=== PATIENT | female | born 1995 | race Two or more races ===

== ENCOUNTER → 2020-03-11 | Outpatient (CLI) | payer OTHER ==
--- NOTE | 2020-03-11 15:14 | RADIOLOGY REPORT (SQ) ---
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 RADIONUCLIDE AND DOSE: 21.3 millicuries Tc99m MDP. The route of agent administration: Intravenous. ADDITIONAL DRUGS AND DOSES: None. TECHNIQUE: Routine delayed images at 3 hour post radionuclide injection acquired of the bony skeleto n including anterior and posterior whole-body projections and additional focused images as needed. LIMITATIONS: None. FINDINGS: BONES: No significant increased uptake. Degenerative change in the knees and shoulders an d right forefoot. KIDNEYS: Symmetric excretion without obstruction. OTHER: No other significant finding. IMPRESSION: No evidence of metastatic disease. COMMENT: Quality measure 147: No available prior imaging studies for comparison TECHNICAL DOCUMENTATION: JOB ID: [id number] 2010 [employer]- All Rights Reserved Reading location - IP/workstation name: [email or web address]
== END ==
LOC: RAD 10:20
PROVIDERS: ATTEND Internal Medicine Hematology & Oncology
DX: C50.411 Malignant neoplasm of upper-outer quadrant of right female breast (principal)
CPT/HCPCS: 78306; A9503; Q9969

== ENCOUNTER → 2020-03-13 | Outpatient (CLI) | payer OTHER ==
--- NOTE | 2020-03-13 10:10 | RADIOLOGY REPORT (SQ) ---
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 TECHNIQUE: CT scan of the chest performed using helical scanning technique with dynamic intravenous contrast injection. Images reviewed with lung, soft tissue and bone windows. Reconstructed coronal and sagittal MPR and MIP images reviewed. All images stored on PACS. All CT scanners at this facility use dose modulation, iterative reconstruction, and/or weight based d osing when appropriate to reduce radiation dose to as low as reasonably achievable (ALARA). [facility]: Dose Right [facility]: CareDose [facility]: Dose Right [facility]: Teradose 4D [facility]: [employer] RENAL FUNCTION: None required. The patient is less than 50 years old. RADIATION DOSE: . LIMITATIONS: None. FINDINGS: LUNGS AND PLEURA: No opacities, nodules, masses. No pneumothorax. No effusions. HILAR AND MEDIASTINAL STRUCTURES: No identified masses or abnormal nodes. HEART AND VASCULAR STRUCTURES: No aneurysm or dissection. No central pulmonary emboli. No pericardi al effusion. HARDWARE: None in the chest. UPPER ABDOMEN: See separate report of the CT of the abdomen. THYROID AND OTHER SOFT TISSUES: No masses. No adenopathy. BONES: No significant finding. OTHER: No other significant finding. IMPRESSION: No evidence of metastatic disease. TECHNICAL DOCUMENTATION: JOB ID: [id number] Quality ID # 436: Final reports with documentation of one or more dose reduction techniques (e.g., Au tomated exposure control, adjustment of the mA and/or kV according to patient size, use of iterative reconstruction technique) 2010 [employer]- All Rights Reserved Reading location - IP/workstation name: [email or web address]
--- NOTE | 2020-03-13 10:13 | RADIOLOGY REPORT (SQ) ---
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 TECHNIQUE: CT scan of the abdomen and pelvis performed using helical scanning technique with dynamic intravenous contrast injection. No oral contrast. Images reviewed with lung, soft tissue, and bone windows. Reconstructed coronal and sagittal MPR images reviewed. Delayed images for evaluation of the urinary system also acquired. All images stored on PACS. All CT scanners at this facility use dose modulation, iterative reconstruction, and/or weight based d osing when appropriate to reduce radiation dose to as low as reasonably achievable (ALARA). [facility]: Dose Right [facility]: CareDose [facility]: Dose Right [facility]: Teradose 4D [facility]: [employer] RENAL FUNCTION: None required. The patient is less than 50 years old. RADIATION DOSE: CT Rad equipment meets quality standard of care and radiation dose reduction techniq ues were employed. CTDIvol: 5.0 - 5.7 mGy. DLP: 761 mGy-cm.. LIMITATIONS: None. FINDINGS: LOWER CHEST: See separate report of the CT of the chest. LIVER: Normal size. No masses. No dilated ducts. SPLEEN: Normal size. No focal lesions. PANCREAS: No masses. No significant calcifications. No adjacent inflammation or peripancreatic fluid collections. Pancreatic duct not dilated. GALLBLADDER: No identified stones by CT criteria. No inflammatory changes to suggest cholecystitis. ADRENAL GLANDS: No significant masses or asymmetry. RIGHT KIDNEY AND URETER: No solid masses. No significant calcifications. No hydronephrosis or hyd roureter. LEFT KIDNEY AND URETER: No solid masses. No significant calcifications. No hydronephrosis or hydr oureter. AORTA AND VESSELS: No aneurysm. No dissection. Renal arteries, SMA, celiac without stenosis. RETROPERITONEUM: No retroperitoneal adenopathy, hemorrhage or masses. BOWEL AND PERITONEAL CAVITY: No masses or inflammatory changes. No free fluid or peritoneal masses. APPENDIX: Normal. PELVIS: No mass. No free fluid. Normal bladder. ABDOMINAL WALL: No masses. No hernias. BONES: No significant or acute findings. OTHER: No other significant finding. IMPRESSION: No evidence of metastatic disease. TECHNICAL DOCUMENTATION: JOB ID: [id number] Quality ID # [id number]: Final reports with documentation of one or more dose reduction techniques (e.g., Au tomated exposure control, adjustment of the mA and/or kV according to patient size, use of iterative reconstruction technique) 2010 [employer]- All Rights Reserved Reading location - IP/workstation name: [email or web address]
== END ==
LOC: RAD 09:21
PROVIDERS: ATTEND Internal Medicine Hematology & Oncology
DX: C50.411 Malignant neoplasm of upper-outer quadrant of right female breast (principal)
CPT/HCPCS: 71260; 74177

== ENCOUNTER 2020-04-30 08:02 | Day surgery (SDC) | payer OTHER ==
[2020-04-25 12:01] LABS: HEMATOCRIT 42.4 % (36.0-47.0); HEMOGLOBIN 14.1 g/dL (12.0-15.5); MEAN CORPUSCULAR HEMOGLOBIN 27.9 pg (27.0-33.4); MEAN CORPUSCULAR HGB CONC 33.1 g/dL (32.0-36.0); MEAN CORPUSCULAR VOLUME 84 fl (80-97); PLATELET COUNT 365 10^3/uL (150-450); RED BLOOD COUNT 5.04 10^6/uL (3.72-5.28); RED CELL DISTRIBUTION WIDTH 15.5 % (11.5-14.0)
[2020-04-25 12:10] LABS: PROTHROMBIN TIME 13.2 SEC (11.4-15.4)
[2020-04-25 12:11] LABS: PARTIAL THROMBOPLASTIN TIME 28.8 SEC (23.5-35.8)
[2020-04-25 12:27] LABS: PFA ADP 110 (56-106); PFA EPI 126 (55-179)
[~2020-04-30 08:02] MED LIST: CEFAZOLIN 1 GM/D5W RTU 1 GM/50 ML RTUPB IV PRN; LACTATED RINGERS 1000 ML IV PRN; LIDOCAINE 0.5% INJ-PF (5 MG/ML) 50 ML SDV SUBCUT PRN; LIDOCAINE 4% CREAM 5 GM TUBE TP PRN
[2020-04-30] MEDS ORDERED: LIDOCAINE 4% CREAM 5 GM TUBE ONE (08:13)
[2020-04-30] MEDS ORDERED: CEFAZOLIN 1 GM/D5W RTU 1 GM/50 ML RTUPB IV ONE (08:15)
[2020-04-30] MEDS ORDERED: FENTANYL CITRATE INJ/PF 100 MCG/2 ML AMPUL ONE ×2 (09:39→13:14)
[2020-04-30] MEDS ORDERED: PROPOFOL INJ 200 MG/20 ML VIAL IV ONE (09:40)
[2020-04-30] MEDS ORDERED: MIDAZOLAM 2 MG/2 ML INJ ONE (09:40)
[2020-04-30] MEDS ORDERED: HYDROMORPHONE HCL INJ/PF 2 MG/ML AMPULE ONE (09:40)
[2020-04-30] MEDS ORDERED: METHYLENE BLUE 50 MG/10 ML AMPULE ONE (10:21)
[2020-04-30] MEDS ORDERED: LIDOCAINE 1%/EPINEPHRINE INJ 20 ML VIAL ONE (10:21)
[2020-04-30] MEDS ORDERED: MICROFIBRILLAR COLLAGEN 1 GM PACK ONE (10:21)
[2020-04-30] MEDS ORDERED: FENTANYL CITRATE INJ/PF 100 MCG/2 ML AMPUL IV PRN ×3 (11:51)
[2020-04-30] MEDS ORDERED: DIPHENHYDRAMINE HCL 50 MG/ML VIAL IV PRN (11:51)
[2020-04-30] MEDS ORDERED: MORPHINE SULFATE 10 MG/ML INJ IV PRN (11:51)
[2020-04-30] MEDS ORDERED: MEPERIDINE HCL/PF INJ 25 MG/1 ML DISP.SYRIN IV PRN (11:51)
[2020-04-30] MEDS ORDERED: PROMETHAZINE HCL INJ 25 MG/1 ML VIAL IV PRN (11:51)
[2020-04-30] MEDS ORDERED: ONDANSETRON HCL INJ/PF 4 MG/2 ML SDV IV PRN (11:51)
[2020-04-30] MEDS ORDERED: OXYCODONE-ACETAMINOPHEN 5-325 MG TABLET PO PRN ×2 (11:51)
--- NOTE | 2020-04-30 13:06 | Discharge Summary ---
Discharge Summary (SDC) - Discharge Final Diagnosis: Infiltrating ductal carcinoma, right breast Date of Surgery: 04/30/20 Discharge Date: 04/30/20 Condition: Good Treatment or Instructions: Instruct patient on drain care; follow-up with [facility] in 1 week; patient may shower. Prescription sent electronically to pharmacy Prescriptions: Ketorolac Tromethamine [Toradol 10 mg Tablet] 10 mg PO Q6HP PRN #20 tablet PRN Reason: Discharge Diet: Regular Discharge Activity: Activity As Tolerated Home Care Assistance: None Needed Report the Following to Your Physician Immediately: Shortness of Breath, Increase in Pain, Fever over 101 Degrees
--- NOTE | 2020-04-30 13:13 | Operative Report ---
Operative Report DATE OF SURGERY: 04/30/20 PREOPERATIVE DIAGNOSIS: Infiltrating ductal carcinoma right breast POSTOPERATIVE DIAGNOSIS: Same OPERATION: 1. Right mastectomy with drainage of chest wall. 2. Luck lymph node biopsy right axilla SURGEON: VINICIO BUTLER ANESTHESIA: GA TISSUE REMOVED OR ALTERED: Right breast; Luck lymph nodes right axilla COMPLICATIONS: None ESTIMATED BLOOD LOSS: 20 cc INTRAOPERATIVE FINDINGS: See below PROCEDURE: The patient was seen in the preop holding area, right breast marked, and neoprobe bedside assessment demonstrated increased activity of Lymphoseek in the right axilla consistent with successful sentinel lymph node mapping. The patient was taken to the operating room where general anesthesia was induced. Right arm was abducted, right breast exposed, and 2 cc of diluted methylene blue was injected into the right breast, areolear border, intradermally at the 2 o'clock position. The right breast was massaged, then the right breast chest wall and axilla all prepped and draped sterile fashion Surgical plan surgical timeout were conducted. Markings were made on the skin for standard right mastectomy. The skin was incised with a #10 blade, and appropriate thickness superior and inferior skin flaps were elevated. The dissection was taken to the infraclavicular area superiorly, the para sternal tissue medially, the confluence of the pectoralis major muscle and the serratus muscle inferiorly and laterally. The breast was taken off of the chest wall including the pectoralis fascia. The lateral aspect of the breast was elevated off of the lateral chest wall and tail of Underwood mobilized. The breast was completely taken off of the chest wall, marked with a short suture the superior position, long suture in the lateral position. The tumor was readily palpable the 10 o'clock position of the right breast, did not involve the margins grossly. Specimen was sent to Dr. boyd, pathologist, who called us back after reviewing the specimen and determined grossly that the surgical margins were free of tumor. We now conducted the sentinel lymph node biopsy. Using the neoprobe as a guide and blue dye, the single dominant sentinel lymph node was blue and hot level 1 with an in vivo count of 6600 and an ex vivo count of 20,960. Specimen consisted of more than 1 lymph node and was sent for permanent analysis. Background counts were negligible. There was no other new activity in the chest wall. We felt the sentinel node biopsy portion of the operation was complete. A large Ronnell drain was placed through the inferolateral skin flap secured to the skin with 2-0 Prolene suture and trimmed to appropriate length and left into position. Sponge and needle counts are correct. We felt the operation was complete. Mastectomy closure was completed with multiple running 2-0 chromic sutures, and skin glue. Patient tolerated procedure well. She had 20 cc of quarter percent Marcaine injected in the subcutaneous tissues. Patient was extubated, taken to the recovery room in stable condition.
[2020-04-30] MEDS ORDERED: ONDANSETRON HCL INJ/PF 4 MG/2 ML SDV ONE ×2 (13:26→15:24)
[2020-04-30 15:09] VITALS: BP 123/81
[2020-04-30] MEDS ORDERED: DEXAMETHASONE SOD PHOSPHATE INJ 4 MG/1 ML VIAL ONE (15:24)
[2020-04-30] MEDS ORDERED: SUCCINYLCHOLINE CHLORIDE INJ 200 MG/10 ML VIAL ONE (15:24)
[2020-04-30] MEDS ORDERED: KETOROLAC TROMETHAMINE 60 MG/2 ML SDV ONE (15:24)
--- NOTE | 2020-05-01 14:17 | RADIOLOGY REPORT (SQ) ---
EXAM DESCRIPTION: NM LYMPHATICS/LYMPH GLANDS IMAGES COMPLETED DATE/TIME: 04/30/2020 10:52 am REASON FOR STUDY: MALIGNANT NEOPLASM OF RT FEMALE BREAST C50.911 MALIGNANT NEOPLASM OF UNSP SITE OF RIGHT FEMALE COLE COMPARISON: 03/13/2020 RADIONUCLIDE AND DOSE: 568 micro[employer] TC-99m tilmanocept - Lymphoseek. The route of agent administration: Subcutaneous in the skin. TECHNIQUE: The skin of the right breast was prepped in sterile fashion. The radiopharmaceutical was administered in equally divided doses in the periareolar breast. LIMITATIONS: None. FINDINGS: Images demonstrate activity at the injection site and a right axillary node. IMPRESSION: ADMINISTRATION OF RADIOPHARMACEUTICAL FOR SENTINEL LYMPH NODE EVALUATION. TECHNICAL DOCUMENTATION: JOB ID: [id number] 2010 [email or web address]- All Rights Reserved Reading location - IP/workstation name: [email or web address]
== END 2020-04-30 15:20 | disposition home or self-care (01) ==
LOC: OROUT 08:02
PROVIDERS: ATTEND Surgery
DX: C50.911 Malignant neoplasm of unspecified site of right female breast (principal); Z03.818 Encounter for observation for suspected exposure to other biological agents ruled out; C50.811 Malignant neoplasm of overlapping sites of right female breast; C77.3 Secondary and unspecified malignant neoplasm of axilla and upper limb lymph nodes; Z17.0 Estrogen receptor positive status [ER+]; Z86.73 Personal history of transient ischemic attack (TIA), and cerebral infarction without residual deficits; Z88.2 Allergy status to sulfonamides; G80.9 Cerebral palsy, unspecified
CPT/HCPCS: 36415; 85027; 85610; 85730; 87635; 81025; 85576; 88342 ×2; 88307 ×2; 78195; 01610; 19307; A9520; J2250; J0690; J1100; J1885; J3010; J3490 ×2; J1170; J0330; J2405; J2704; Q9968; C9803; 1610

== ENCOUNTER 2020-06-12 08:14 | Outpatient (CLI) | payer OTHER ==
[2020-06-12] MEDS ORDERED: PALONOSETRON 0.25 MG/5 ML VIAL IV PRN (08:31)
[2020-06-12] MEDS ORDERED: DEXAMETHASONE 10 MG in NS 50 ML IV PRN (08:33)
[2020-06-12] MEDS ORDERED: FOSAPREPITANT 150 MG in NS 150 ML IV PRN (08:33)
[2020-06-12] MEDS ORDERED: FAMOTIDINE 20 MG in NS 50 ML IV PRN ×2 (08:34→08:59)
[2020-06-12] MEDS ORDERED: DIPHENHYDRAMINE 50 MG/ML VIAL IV PRN (08:35)
[2020-06-12] MEDS ORDERED: DOCETAXEL IV PRN (08:39)
[2020-06-12] MEDS ORDERED: NORMAL SALINE IV PRN ×2 (08:39→08:45)
[2020-06-12] MEDS ORDERED: DIPHENHYDRAMINE 50 MG in NS 50 ML IV PRN (08:40)
[2020-06-12] MEDS ORDERED: CYCLOPHOSPHAMIDE IV PRN (08:45)
[2020-06-12 09:37] VITALS: BP 126/72
[2020-06-13] MEDS ORDERED: NORMAL SALINE 500 ML @ KVO IV PRN (05:00)
== END 2020-06-12 13:30 | disposition home or self-care (01) ==
LOC: II 08:14 → 5TH 08:17 → II 13:30
PROVIDERS: ATTEND Nurse Practitioner Family
DX: Z51.11 Encounter for antineoplastic chemotherapy (principal); C50.411 Malignant neoplasm of upper-outer quadrant of right female breast
CPT/HCPCS: 96413; 96367; 96375; 96417; J9070; J1200; J7050 ×2; S0028; J1100; J1453; J2469; J9171

== ENCOUNTER 2020-06-13 12:47 | Outpatient (CLI) | payer OTHER ==
[~2020-06-13 12:47] MED LIST changes: -CEFAZOLIN 1 GM/D5W RTU 1 GM/50 ML RTUPB IV PRN; -LACTATED RINGERS 1000 ML IV PRN; -LIDOCAINE 0.5% INJ-PF (5 MG/ML) 50 ML SDV SUBCUT PRN; -LIDOCAINE 4% CREAM 5 GM TUBE TP PRN; +PEGFILGRASTIM-CBQV 6 MG/0.6 ML SYRINGE SUBCUT PRN
[2020-06-13 13:15] VITALS: BP 107/79
== END 2020-06-13 13:47 | disposition home or self-care (01) ==
LOC: II 12:47 → 5TH 12:49 → II 13:47
PROVIDERS: ATTEND Nurse Practitioner Family
DX: Z76.89 Persons encountering health services in other specified circumstances (principal); C50.411 Malignant neoplasm of upper-outer quadrant of right female breast
CPT/HCPCS: 96372; Q5111

== ENCOUNTER 2020-07-03 08:00 | Outpatient (CLI) | payer OTHER ==
[~2020-07-03 08:00] MED LIST changes: +CYCLOPHOSPHAMIDE IV PRN; +DEXAMETHASONE 10 MG in NS 50 ML IV PRN; +DIPHENHYDRAMINE 50 MG in NS 50 ML IV PRN; +DOCETAXEL IV PRN; +FAMOTIDINE 20 MG in NS 50 ML IV PRN; +FOSAPREPITANT 150 MG in NS 150 ML IV PRN; +NORMAL SALINE 500 ML @ KVO IV PRN; +NORMAL SALINE IV PRN; +PALONOSETRON 0.25 MG/5 ML VIAL IV PRN; -PEGFILGRASTIM-CBQV 6 MG/0.6 ML SYRINGE SUBCUT PRN
[2020-07-03 08:45] VITALS: BP 125/78
== END 2020-07-03 12:15 | disposition home or self-care (01) ==
LOC: II 08:00 → 5TH 08:03 → II 12:15
PROVIDERS: ATTEND Internal Medicine Hematology & Oncology
DX: Z51.11 Encounter for antineoplastic chemotherapy (principal); C50.411 Malignant neoplasm of upper-outer quadrant of right female breast
CPT/HCPCS: 96411; 96413; 96367; 96375; J9070; J1200; J7050 ×2; S0028; J1100; J1453; J2469; J9171

== ENCOUNTER 2020-07-04 11:38 | Outpatient (CLI) | payer OTHER ==
[~2020-07-04 11:38] MED LIST changes: -CYCLOPHOSPHAMIDE IV PRN; -DEXAMETHASONE 10 MG in NS 50 ML IV PRN; -DIPHENHYDRAMINE 50 MG in NS 50 ML IV PRN; -DOCETAXEL IV PRN; -FAMOTIDINE 20 MG in NS 50 ML IV PRN; -FOSAPREPITANT 150 MG in NS 150 ML IV PRN; -NORMAL SALINE 500 ML @ KVO IV PRN; -NORMAL SALINE IV PRN; -PALONOSETRON 0.25 MG/5 ML VIAL IV PRN; +PEGFILGRASTIM-CBQV 6 MG/0.6 ML SYRINGE SUBCUT PRN
[2020-07-04 11:55] VITALS: BP 106/81
== END 2020-07-04 12:00 | disposition home or self-care (01) ==
LOC: II 11:38 → 5TH 11:43 → II 12:00
PROVIDERS: ATTEND Internal Medicine Hematology & Oncology
DX: Z76.89 Persons encountering health services in other specified circumstances (principal); C50.411 Malignant neoplasm of upper-outer quadrant of right female breast
CPT/HCPCS: 96372; Q5111

== ENCOUNTER 2020-07-24 07:54 | Outpatient (CLI) | payer OTHER ==
[~2020-07-24 07:54] MED LIST changes: +CYCLOPHOSPHAMIDE IV PRN; +DEXAMETHASONE 10 MG in NS 50 ML IV PRN; +DIPHENHYDRAMINE 50 MG in NS 50 ML IV PRN; +DOCETAXEL IV PRN; +FAMOTIDINE 20 MG in NS 50 ML IV PRN; +FOSAPREPITANT 150 MG in NS 150 ML IV PRN; +NORMAL SALINE 500 ML @ KVO IV PRN; +NORMAL SALINE IV PRN; +PALONOSETRON 0.25 MG/5 ML SDV IV PRN; -PEGFILGRASTIM-CBQV 6 MG/0.6 ML SYRINGE SUBCUT PRN
[2020-07-24 08:38] VITALS: BP 118/74
[2020-07-24] MEDS ORDERED: LORAZEPAM INJ 2 MG/1 ML VIAL IV ONE (13:00)
[2020-07-24] MEDS ORDERED: LORAZEPAM 0.5 MG TABLET PO ONE (13:00)
== END 2020-07-24 15:00 | disposition home or self-care (01) ==
LOC: II 07:54 → 5TH 07:57 → II 15:00
PROVIDERS: ATTEND Internal Medicine Hematology & Oncology
DX: Z51.11 Encounter for antineoplastic chemotherapy (principal); C50.411 Malignant neoplasm of upper-outer quadrant of right female breast
CPT/HCPCS: 96411; 96413; 96367; 96375; J9070; J1200; J7050 ×2; S0028; J1100; J1453; J2469; J9171

== ENCOUNTER 2020-07-25 14:02 | Outpatient (CLI) | payer OTHER ==
[~2020-07-25 14:02] MED LIST changes: -CYCLOPHOSPHAMIDE IV PRN; -DEXAMETHASONE 10 MG in NS 50 ML IV PRN; -DIPHENHYDRAMINE 50 MG in NS 50 ML IV PRN; -DOCETAXEL IV PRN; -FAMOTIDINE 20 MG in NS 50 ML IV PRN; -FOSAPREPITANT 150 MG in NS 150 ML IV PRN; -NORMAL SALINE 500 ML @ KVO IV PRN; -NORMAL SALINE IV PRN; -PALONOSETRON 0.25 MG/5 ML SDV IV PRN; +PEGFILGRASTIM-CBQV 6 MG/0.6 ML SYRINGE SUBCUT PRN
[2020-07-25 14:30] VITALS: BP 107/60
== END 2020-07-25 14:32 | disposition home or self-care (01) ==
LOC: II 14:02 → 5TH 14:04 → II 14:32
PROVIDERS: ATTEND Internal Medicine Hematology & Oncology
DX: Z76.89 Persons encountering health services in other specified circumstances (principal); C50.411 Malignant neoplasm of upper-outer quadrant of right female breast
CPT/HCPCS: 96372; Q5111

== ENCOUNTER 2020-08-14 07:58 | Outpatient (CLI) | payer OTHER ==
[~2020-08-14 07:58] MED LIST changes: +CYCLOPHOSPHAMIDE IV PRN; +DEXAMETHASONE 10 MG in NS 50 ML IV PRN; +DOCETAXEL IV PRN; +FAMOTIDINE 20 MG in NS 50 ML IV PRN; +FOSAPREPITANT 150 MG in NS 150 ML IV PRN; +NORMAL SALINE 500 ML @ KVO IV PRN; +NORMAL SALINE IV PRN; +PALONOSETRON 0.25 MG/5 ML VIAL IV PRN; -PEGFILGRASTIM-CBQV 6 MG/0.6 ML SYRINGE SUBCUT PRN
[2020-08-14 08:46] VITALS: BP 114/74
--- OUTSIDE RECORDS SUMMARY | 2020-08-15 15:01 | XMS REPORT ---
:1995 Author Organization [facility] Address [facility] [address] [place] [id number] Care Team Providers Name Role Phone Veda Mead M.D. Attending Clinician Unavailable Allergies, Adverse Reactions, Alerts Allergy Allergy Status Severity Reaction(s) Onset Inactive Treating Joanne gaitan Name Type Date Date Clinician Merari Allergy to Active Allergy Drug (Ingredien (Finding) t(s): diphenhydr amine) surgical [id number] Active tape sulfa Allergy to Active Drug (Finding) Medications Ordered Filled Start Stop Current Ordering Indication Dosage Frequency Signature Comments Components Medication Medication Date Date Medication? Clinician (SIG) Name Name HYDROcodone 2020-0 Yes 1 -Ibuprofen 06-16 00:00: 00 Pegfilgrast 2020-0 Yes 6mg im 9- 00:00: 00 Cytoxan 2020-0 Yes 936mg 9- 00:00: 00 Dexamethaso 2020-0 Yes 10mg ne Sodium 9-10 Phosphate 00:00: 00 DiphenhydrA 2020-0 Yes 50mg MINE HCl 9- 00:00: 00 Docetaxel 2020-0 Yes 117mg 9-10 00:00: 00 Famotidine 2020-0 Yes 20mg 9- 00:00: 00 Hydration 2020-0 Yes 500mL 500mL NS 9- 00:00: 00 Fosaprepita 2020-0 2020- Yes 150mg nt -07-25 Dimeglumine 00:00: 00:00 00 :00 Palonosetro 2020-0 2020- Yes .25mg n HCl 06-12 00:00: 00:00 00 :00 Ativan 2020-0 Yes 1 06-11 00:00: 00 Promethazin 2020-0 Yes 1 e HCl 06-11 00:00: 00 Zofran 2020-0 Yes 1 06-11 00:00: 00 Tamoxifen 2020-0 2020- No 1 Citrate 24 05-14 00:00: 08:46 00 :53 Problems Condition Condition Condition Status Onset Resolution Last Treatin g Comments Name Details Category Date Date Treatment Clinician Date 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 Results Test Description Test Time Test Comments Text Results Atomic Results Result Comments Glucose 2020-08-13 12:10:17 Test Item Value Reference Range Comments Glucose (test code = Glucose) 108.0000 mg/dL 60.0000-115.0000 BUN (test code = BUN) 10.0000 mg/dL 5.0000-26.0000 Creatinine (test code = Creatinine) 0.5300 mg/dL 0.5000-1.500 0 Cr Clearance (Est) (test code = Cr Clearance 155.7300 75. 0000-115.0000 (Est)) Sodium (test code = Sodium) 137.9000 mmol/L 135.0000-148.0000 Potassium (test code = Potassium) 4.6000 mmol/L 3.5000-5.5000 Chloride (test code = Chloride) 103.0000 mmol/L 96.0000-109.0000 CO2 (test code = CO2) 24.0000 mmol/L 21.0000-32.0000 Calcium (test code = Calcium) 9.9000 mg/dL 8.5000-10.6000 Protein, Total (test code = Protein, Total) 7.6000 g/dL 6.00 00-8.5000 Albumin (test code = Albumin) 4.9000 g/dL 3.5000-5.5000 Bilirubin, Total (test code = Bilirubin, Total) 0.5000 mg/dL 0.1000-1.2000 Alkaline Phosphatase (test code = Alkaline 63.0000 40.00 00-150.0000 Phosphatase) AST (SGOT) (test code = AST (SGOT)) 31.0000 0.0000-45.00 00 ALT (SGPT) (test code = ALT (SGPT)) 17.0000 0.0000-50.00 00 Ferritin (test code = Ferritin) 13.1000 ng/mL 10.0000-291.0000 % Iron Saturation (test code = % Iron Saturation) 10.0000 % 15.0000-55.0000 Iron, Total (test code = Iron, Total) 35.5000 40.0000-18 0.0000 TIBC (test code = TIBC) 361.0000 250.0000-450.0000 [id number] 09:03:00 Test Item Value Reference Range Comments WBC (test code = WBC) 9.3000 4.0000-10.0000 Lymphocytes % (test code = Lymphocytes %) 17.4000 % 22.400 0-43.6000 MID% (test code = MID%) 4.5000 % 1.2000-11.2000 Neutrophils % (test code = Neutrophils %) 78.1000 % 48.900 0-69.9000 Lymphocytes (test code = Lymphocytes) 1.6000 1.2000-3.2 000 MID (test code = MID) 0.4000 0.1000-1.1000 Neutrophils (test code = Neutrophils) 7.3000 1.5000-6.7 000 RBC (test code = RBC) 4.1300 3.7000-4.9000 HGB (test code = HGB) 10.8000 g/dL 11.2000-18.0000 HCT (test code = HCT) 33.0000 % 34.0000-44.0000 MCV (test code = MCV) 79.9000 fL 80.0000-94.0000 MCH (test code = MCH) 26.3000 pg 27.0000-34.0000 MCHC (test code = MCHC) 32.9000 g/dL 31.5000-36.0000 RDW (test code = RDW) 17.4000 11.0000-18.0000 PLT (test code = PLT) 431.0000 140.0000-440.0000 MPV (test code = MPV) 9.0000 fL 6.8000-10.6000 [id number] 10:23:55 Test Item Value Reference Range Comments Glucose (test code = Glucose) 109.0000 mg/dL 60.0000-115.0000 BUN (test code = BUN) 9.0000 mg/dL 5.0000-26.0000 Creatinine (test code = Creatinine) 0.5400 mg/dL 0.5000-1.500 0 Cr Clearance (Est) (test code = Cr 157.8200 75.0000-115.0 000 Clearance (Est)) Sodium (test code = Sodium) 139.3000 mmol/L 135.0000-148.0000 Potassium (test code = Potassium) 4.2000 mmol/L 3.5000-5.5000 Chloride (test code = Chloride) 104.0000 mmol/L 96.0000-109.0000 CO2 (test code = CO2) 22.0000 mmol/L 21.0000-32.0000 Calcium (test code = Calcium) 9.7000 mg/dL 8.5000-10.6000 Protein, Total (test code = Protein, 7.8000 g/dL 6.0000-8.50 00 Total) Albumin (test code = Albumin) 4.9000 g/dL 3.5000-5.5000 Bilirubin, Total (test code = Bilirubin, 0.4000 mg/dL 0.1000- 1.2000 Total) Alkaline Phosphatase (test code = Alkaline 69.0000 40.00 00-150.0000 Phosphatase) AST (SGOT) (test code = AST (SGOT)) 24.0000 0.0000-45.00 00 ALT (SGPT) (test code = ALT (SGPT)) 17.0000 0.0000-50.00 00 [id number] 09:35:00 Test Item Value Reference Range Comments WBC (test code = WBC) 9.4000 4.0000-10.0000 Lymphocytes % (test code = Lymphocytes %) 23.9000 % 22.400 0-43.6000 MID% (test code = MID%) 5.0000 % 1.2000-11.2000 Neutrophils % (test code = Neutrophils %) 71.1000 % 48.900 0-69.9000 Lymphocytes (test code = Lymphocytes) 2.2000 1.2000-3.2 000 MID (test code = MID) 0.5000 0.1000-1.1000 Neutrophils (test code = Neutrophils) 6.7000 1.5000-6.7 000 RBC (test code = RBC) 3.6300 3.7000-4.9000 HGB (test code = HGB) 10.3000 g/dL 11.2000-18.0000 HCT (test code = HCT) 29.8000 % 34.0000-44.0000 MCV (test code = MCV) 81.9000 fL 80.0000-94.0000 MCH (test code = MCH) 28.3000 pg 27.0000-34.0000 MCHC (test code = MCHC) 34.5000 g/dL 31.5000-36.0000 RDW (test code = RDW) 16.6000 11.0000-18.0000 PLT (test code = PLT) 384.0000 140.0000-440.0000 MPV (test code = MPV) 8.7000 fL 6.8000-10.6000 [id number] 14:46:47 Test Item Value Reference Range Comments Glucose (test code = Glucose) 118.0000 mg/dL 60.0000-115.0000 BUN (test code = BUN) 9.0000 mg/dL 5.0000-26.0000 Creatinine (test code = Creatinine) 0.5300 mg/dL 0.5000-1.500 0 Cr Clearance (Est) (test code = Cr 164.4800 75.0000-115.0 000 Clearance (Est)) Sodium (test code = Sodium) 138.9000 mmol/L 135.0000-148.0000 Potassium (test code = Potassium) 3.9000 mmol/L 3.5000-5.5000 Chloride (test code = Chloride) 104.0000 mmol/L 96.0000-109.0000 CO2 (test code = CO2) 22.0000 mmol/L 21.0000-32.0000 Calcium (test code = Calcium) 9.9000 mg/dL 8.5000-10.6000 Protein, Total (test code = Protein, 7.5000 g/dL 6.0000-8.50 00 Total) Albumin (test code = Albumin) 4.6000 g/dL 3.5000-5.5000 Bilirubin, Total (test code = Bilirubin, 0.4000 mg/dL 0.1000- 1.2000 Total) Alkaline Phosphatase (test code = Alkaline 73.0000 40.00 00-150.0000 Phosphatase) AST (SGOT) (test code = AST (SGOT)) 26.0000 0.0000-45.00 00 ALT (SGPT) (test code = ALT (SGPT)) 20.0000 0.0000-50.00 00 [id number] 08:09:00 Test Item Value Reference Range Comments WBC (test code = WBC) 10.6000 4.0000-10.0000 Lymphocytes % (test code = Lymphocytes %) 30.0000 % 22.400 0-43.6000 MID% (test code = MID%) 5.1000 % 1.2000-11.1999 Neutrophils % (test code = Neutrophils %) 64.9000 % 48.900 0-69.9000 Lymphocytes (test code = Lymphocytes) 3.1000 1.2000-3.2 000 MID (test code = MID) 0.6000 0.1000-1.1000 Neutrophils (test code = Neutrophils) 6.9000 1.5000-6.7 000 RBC (test code = RBC) 4.8800 3.7000-4.9000 HGB (test code = HGB) 13.4000 g/dL 11.2000-18.0000 HCT (test code = HCT) 39.8000 % 34.0000-44.0000 MCV (test code = MCV) 81.5000 fL 80.0000-94.0000 MCH (test code = MCH) 27.6000 pg 27.0000-34.0000 MCHC (test code = MCHC) 33.8000 g/dL 31.5000-36.0000 RDW (test code = RDW) 16.5000 11.0000-18.0000 PLT (test code = PLT) 477.0000 140.0000-440.0000 MPV (test code = MPV) 9.0000 fL 6.8000-10.6000 [id number] 08:09:08 Test Item Value Reference Range Comments Creatinine (test code = Creatinine) 0.6000 mg/dL 0.5000-1.500 0 Cr Clearance (Est) (test code = Cr Clearance 143.6600 75. 0000-115.0000 (Est)) [id number] 14:37:00 Test Item Value Reference Range Comments WBC (test code = WBC) 9.6000 4.0000-10.0000 Lymphocytes % (test code = Lymphocytes %) 34.7000 % 22.400 0-43.6000 MID% (test code = MID%) 6.0000 % 1.2000-11.2000 Neutrophils % (test code = Neutrophils %) 59.3000 % 48.900 0-69.9000 Lymphocytes (test code = Lymphocytes) 3.3000 1.2000-3.2 000 MID (test code = MID) 0.6000 0.1000-1.1000 Neutrophils (test code = Neutrophils) 5.7000 1.5000-6.7 000 RBC (test code = RBC) 4.9000 3.7000-4.9000 HGB (test code = HGB) 13.1000 g/dL 11.2000-18.0000 HCT (test code = HCT) 41.2000 % 34.0000-44.0000 MCV (test code = MCV) 84.1000 fL 80.0000-94.0000 MCH (test code = MCH) 26.9000 pg 27.0000-34.0000 MCHC (test code = MCHC) 32.0000 g/dL 31.5000-36.0000 RDW (test code = RDW) 15.9000 11.0000-18.0000 PLT (test code = PLT) 466.0000 140.0000-440.0000 MPV (test code = MPV) 9.1000 fL 6.8000-10.6000 [id number] 10:34:02 Test Item Value Reference Range Comments Glucose (test code = Glucose) 106.0000 mg/dL 60.0000-115.0000 BUN (test code = BUN) 11.0000 mg/dL 5.0000-26.0000 Creatinine (test code = Creatinine) 0.6000 mg/dL 0.5000-1.500 0 Cr Clearance (Est) (test code = Cr 143.6600 75.0000-115.0 000 Clearance (Est)) Sodium (test code = Sodium) 140.8000 mmol/L 135.0000-148.0000 Potassium (test code = Potassium) 3.9000 mmol/L 3.5000-5.5000 Chloride (test code = Chloride) 105.0000 mmol/L 96.0000-109.0000 CO2 (test code = CO2) 26.0000 mmol/L 21.0000-32.0000 Calcium (test code = Calcium) 10.0000 mg/dL 8.5000-10.6000 Protein, Total (test code = Protein, 7.9000 g/dL 6.0000-8.50 00 Total) Albumin (test code = Albumin) 4.8000 g/dL 3.5000-5.5000 Bilirubin, Total (test code = Bilirubin, 0.4000 mg/dL 0.1000- 1.2000 Total) Alkaline Phosphatase (test code = Alkaline 66.0000 40.00 00-150.0000 Phosphatase) AST (SGOT) (test code = AST (SGOT)) 27.0000 0.0000-45.00 00 ALT (SGPT) (test code = ALT (SGPT)) 16.0000 0.0000-50.00 00 [id number] 13:53:00 Test Item Value Reference Range Comments Creatinine (test code = Creatinine) 0.7100 mg/dL 0.5700-1.000 0 Cr Clearance (Est) (test code = Cr 129.3200 75.0000-115.0 000 Clearance (Est)) Glucose (test code = Glucose) 88.0000 mg/dL 65.0000-99.0000 BUN (test code = BUN) 16.0000 mg/dL 6.0000-20.0000 eGFR Qnm-Enmhprb-Ioyyvxuv (test code = 118.0000 eGFR Jpq-Ifsmlvt-Lpxsnlnu) eGFR -Uruguayan (test code = eGFR 136.0000 -U[place]) BUN/Creat Ratio (test code = BUN/Creat 23.0000 9.0000-23 .0000 Ratio) Sodium (test code = Sodium) 142.0000 mmol/L 134.0000-144.0000 Potassium (test code = Potassium) 4.1000 mmol/L 3.5000-5.2000 Chloride (test code = Chloride) 104.0000 mmol/L 96.0000-106.0000 CO2 (test code = CO2) 23.0000 mmol/L 20.0000-29.0000 Calcium (test code = Calcium) 10.1000 mg/dL 8.7000-10.2000 Protein, Total (test code = Protein, 7.5000 g/dL 6.0000-8.50 00 Total) Albumin (test code = Albumin) 4.9000 g/dL 3.9000-5.0000 Globulin (test code = Globulin) 2.6000 g/dL 1.5000-4.5000 A/G Ratio (test code = A/G Ratio) 1.9000 1.2000-2.2000 Bilirubin, Total (test code = Bilirubin, 0.2000 mg/dL 0.0000- 1.2000 Total) Alkaline Phosphatase (test code = Alkaline 76.0000 39.00 00-117.0000 Phosphatase) AST (SGOT) (test code = AST (SGOT)) 19.0000 0.0000-40.00 00 ALT (SGPT) (test code = ALT (SGPT)) 13.0000 0.0000-32.00 00 Vitamin D (25-Hydroxy) (test code = 40.5000 ng/mL 30.0000-100. 0000 Vitamin D (25-Hydroxy)) [id number] 15:25:00 Test Item Value Reference Range Comments WBC (test code = WBC) 11.3000 4.0000-10.0000 Lymphocytes % (test code = Lymphocytes %) 30.1000 % 22.400 0-43.6000 MID% (test code = MID%) 6.2000 % 1.2000-11.2000 Neutrophils % (test code = Neutrophils %) 63.7000 % 48.900 0-69.9000 Lymphocytes (test code = Lymphocytes) 3.4000 1.2000-3.2 000 MID (test code = MID) 0.7000 0.1000-1.1000 Neutrophils (test code = Neutrophils) 7.2000 1.5000-6.7 000 RBC (test code = RBC) 5.1600 3.7000-4.9000 HGB (test code = HGB) 14.3000 g/dL 11.2000-18.0000 HCT (test code = HCT) 43.9000 % 34.0000-44.0000 MCV (test code = MCV) 84.9000 fL 80.0000-94.0000 MCH (test code = MCH) 27.6000 pg 27.0000-34.0000 MCHC (test code = MCHC) 32.5000 g/dL 31.5000-36.0000 RDW (test code = RDW) 15.4000 11.0000-18.0000 PLT (test code = PLT) 392.0000 140.0000-440.0000 MPV (test code = MPV) 9.1000 fL 6.8000-10.6000 Encounters Start End Encounter Admission Attending Care Care Encounter Date/Time Date/Time Type Type Clinicians Facility Department ID 2020-08-14 2020-08-14 Outpatient [facility] n [id number] [facility] 2020-08-13 2020-08-13 [facility] 2 [id number] 00:00:00 00:00:00 Josiane Veda cleaning [facility] Medical Oncology Oncology [facility] 2020-07-25 2020-07-25 Outpatient [facility] n [id number] 00:00:00 00:00:00 [facility] 2020-07-24 2020-07-24 Outpatient [facility] n [id number] [facility] 2020-07-23 2020-07-23 [facility] 2 [id number] 00:00:00 00:00:00 Josiane Veda [facility] Medical Oncology Oncology [facility] 2020-07-22 2020-07-22 Outpatient Laci Aguero n [id number] 00:00:00 00:00:00 n Medical Medical Oncology Oncology [facility] [place] 2020-07-17 2020-07-17 Outpatient Laci Aguero n [id number] 00:00:00 00:00:00 n Medical Medical Oncology Oncology [facility] 2020-07-10 2020-07-10 Outpatient [place] Laci Aguero n [id number] 00:00:00 00:00:00 Veda n Medical Medical Oncology [facility] [place] 2020-07-09 2020-07-09 Outpatient Laci Aguero n [id number] 00:00:00 00:00:00 Medical Medical Oncology Oncology [facility] [place] 2020-07-04 2020-07-04 Outpatient Alyce Sandracarley Sandracar[facility] n [id number] 00:00:00 00:00:00 Veda n Medical Medical Oncology Oncology [facility] [place] 2020-07-03 2020-07-03 Outpatient Alyce Laci Florescarley n [id number] 00:00:00 00:00:00 Veda [facility] Oncology [facility] [place] 2020-07-02 2020-07-02 Dr. Alyce Mead Sand[facility]ley Sandracar[facility] n [id number] 00:00:00 00:00:00 Veda Mccollum [facility] Medical Oncology Oncology [facility] [place] 2020-06-16 2020-06-16 Outpatient Laci Florescarley n [id number] 00:00:00 00:00:00 [facility] Medical Oncology Oncology [facility] [place] 2020-06-13 2020-06-13 Outpatient Alyce Sandracarley Sandracar[facility] n [id number] 00:00:00 00:00:00 Veda n Medical Medical Oncology [facility] [place] 2020-06-12 2020-06-12 Outpatient [place] Laci Florescarley n [id number] 00:00:00 00:00:00 Veda n Medical Medical Oncology [facility] [place] 2020-06-11 2020-06-11 Mitchell Sandracarley Peres [id number] 00:00:00 00:00:00 Ashley [facility] Medical Oncology Oncology [facility] [place] 2020-05-28 2020-05-28 Outpatient Laci Florescarley n [id number] 00:00:00 00:00:00 Medical Medical Oncology Oncology [facility] [place] 2020-05-27 2020-05-27 Outpatient Sandracarley Sandracarley n [id number] 00:00:00 00:00:00 n Medical Medical Oncology [facility] [place] 2020-05-23 2020-05-23 Outpatient Laci Aguero n [id number] 00:00:00 00:00:00 n [facility] Medical Oncology Oncology [facility] [place] 2020-05-22 2020-05-22 Outpatient Laci Aguero n [id number] 00:00:00 00:00:00 n [facility] Medical Oncology Oncology [facility] [place] 2020-05-21 2020-05-21 Outpatient Laci Aguero n [id number] 00:00:00 00:00:00 n [facility] Medical Oncology Oncology [facility] [place] 2020-05-19 2020-05-19 Outpatient Laci Aguero n [id number] 00:00:00 00:00:00 [facility] Medical Oncology Oncology [facility] [place] 2020-05-15 2020-05-15 Outpatient Laci Aguero n [id number] 00:00:00 00:00:00 [facility] Medical Oncology Oncology [facility] [place] 2020-05-14 2020-05-14 Alyce Hung [facility] 2 [id number] 00:00:00 00:00:00 Mali Mccollum [facility] Medical Oncology Oncology [facility] [place] 2020-05-09 2020-05-09 Outpatient Sandracarley Laci n [id number] 00:00:00 00:00:00 [facility] Medical Oncology Oncology [facility] [place] 2020-03-31 2020-03-31 Outpatient Sandracarley Sandracarley n [id number] 00:00:00 00:00:00 [facility] Medical Oncology Oncology [facility] [place] 2020-03-26 2020-03-26 Outpatient Alyce Sandracarley Sand[facility] n [id number] 00:00:00 00:00:00 Veda n [facility] Medical Oncology Oncology [facility] [place] 2020-03-25 2020-03-25 Outpatient Sandracarley Sandracarley n [id number] 00:00:00 00:00:00 n Medical Medical Oncology [facility] [place] 2020-03-18 2020-03-18 Outpatient Laci Mead [facility] n [id number] 00:00:00 00:00:00 Veda cleaning [facility] Medical Oncology Oncology [facility] [place] 2020-03-17 2020-03-17 Dr. Alyce Mead [facility] n [id number] 00:00:00 00:00:00 Veda Mccollum [facility] Medical Oncology Oncology [facility] [place] 2020-03-14 2020-03-14 Outpatient Sandracarley Sandracarley n [id number] 00:00:00 00:00:00 n Medical Medical Oncology Oncology Center [facility] 2020-03-07 2020-03-07 Outpatient [facility] n [id number] 00:00:00 00:00:00 n Medical Medical Oncology Oncology Center [facility] 2020-03-06 2020-03-06 [facility] 2 [id number] 00:00:00 00:00:00 Mali Mccollum n Medical Medical Oncology Oncology Center [facility] 2020-03-05 2020-03-05 Outpatient [facility] n [id number] 00:00:00 00:00:00 n Medical Medical Oncology Oncology Center [facility] 2020-03-04 2020-03-04 Outpatient [facility] n [id number] 00:00:00 00:00:00 n Medical Medical Oncology Oncology [facility] 2020-03-03 2020-03-03 Outpatient [facility] n [id number] 00:00:00 00:00:00 n Medical Medical Oncology Oncology Center [facility] 2020-02-29 2020-02-29 Outpatient [facility] n [id number] 00:00:00 00:00:00 Medical Medical Oncology Oncology Center [facility] 2020-02-21 2020-02-21 Outpatient [facility] n [id number] 00:00:00 00:00:00 [facility] Oncology [facility] [place] Social History Smoking Status Start Date Stop Date Never 2020-08-13 00:00:00 Social History Observation Description Sex Female Vital Signs Vital Name Observation Time Observation Value Comments BMI 2020-08-13 09:25:36 27.3100 BP juarez 2020-08-13 09:25:36 81.0000 mm[Hg] Bdy height 2020-08-13 09:25:36 59.0000 [in_i] Heart rate 2020-08-13 09:25:36 120.0000 /min Resp rate 2020-08-13 09:25:36 12.0000 /min BP sys 2020-08-13 09:25:36 124.0000 mm[Hg] Body temperature 2020-08-13 09:25:36 98.4000 [degF] Weight 2020-08-13 09:25:36 135.2000 [lb_av] BP juarez 2020-07-23 09:48:16 82.0000 mm[Hg] Bdy height 2020-07-23 09:48:16 59.0000 [in_i] SaO2% BldA PulseOx 2020-07-23 09:48:16 98.0000 % Heart rate 2020-07-23 09:48:16 81.0000 /min Resp rate 2020-07-23 09:48:16 16.0000 /min BP sys 2020-07-23 09:48:16 131.0000 mm[Hg] Body temperature 2020-07-23 09:48:16 97.5000 [degF] Weight 2020-07-23 09:48:16 139.6000 [lb_av] BMI 2020-07-23 09:48:16 28.2000 Bdy height 2020-07-02 08:38:06 59.0000 [in_i] Heart rate 2020-07-02 08:38:06 104.0000 /min Resp rate 2020-07-02 08:38:06 16.0000 /min BP sys 2020-07-02 08:38:06 140.0000 mm[Hg] Body temperature 2020-07-02 08:38:06 98.1000 [degF] Weight 2020-07-02 08:38:06 142.8000 [lb_av] BMI 2020-07-02 08:38:06 28.8400 BP juarez 2020-07-02 08:38:06 93.0000 mm[Hg] BMI 2020-06-11 14:54:07 28.5200 BP juarez 2020-06-11 14:54:07 90.0000 mm[Hg] Bdy height 2020-06-11 14:54:07 59.0000 [in_i] SaO2% BldA PulseOx 2020-06-11 14:54:07 97.0000 % Heart rate 2020-06-11 14:54:07 85.0000 /min Resp rate 2020-06-11 14:54:07 16.0000 /min BP sys 2020-06-11 14:54:07 133.0000 mm[Hg] Body temperature 2020-06-11 14:54:07 98.2000 [degF] Weight 2020-06-11 14:54:07 141.2000 [lb_av] BMI 2020-05-14 08:46:25 28.6800 BP juarez 2020-05-14 08:46:25 79.0000 mm[Hg] Bdy height 2020-05-14 08:46:25 59.0000 [in_i] Heart rate 2020-05-14 08:46:25 83.0000 /min Resp rate 2020-05-14 08:46:25 16.0000 /min BP sys 2020-05-14 08:46:25 128.0000 mm[Hg] Body temperature 2020-05-14 08:46:25 98.1000 [degF] Weight 2020-05-14 08:46:25 142.0000 [lb_av] BMI 2020-03-06 14:25:05 30.3800 BP juarez 2020-03-06 14:25:05 85.0000 mm[Hg] Bdy height 2020-03-06 14:25:05 59.0000 [in_i] Heart rate 2020-03-06 14:25:05 108.0000 /min Resp rate 2020-03-06 14:25:05 16.0000 /min BP sys 2020-03-06 14:25:05 114.0000 mm[Hg] Body temperature 2020-03-06 14:25:05 98.3000 [degF] Weight 2020-03-06 14:25:05 150.4000 [lb_av]
== END 2020-08-14 14:34 | disposition home or self-care (01) ==
LOC: II 07:58 → 5TH 08:00 → II 14:34
PROVIDERS: ATTEND Internal Medicine Hematology & Oncology
DX: Z51.11 Encounter for antineoplastic chemotherapy (principal); C50.411 Malignant neoplasm of upper-outer quadrant of right female breast
CPT/HCPCS: 96413; 96415; 96367; 96375; J9070; J7050 ×2; S0028; J1100; J1453; J2469; J9171; 96411

== ENCOUNTER 2020-08-15 12:02 | Outpatient (CLI) | payer OTHER ==
[~2020-08-15 12:02] MED LIST changes: -CYCLOPHOSPHAMIDE IV PRN; -DEXAMETHASONE 10 MG in NS 50 ML IV PRN; -DOCETAXEL IV PRN; -FAMOTIDINE 20 MG in NS 50 ML IV PRN; -FOSAPREPITANT 150 MG in NS 150 ML IV PRN; -NORMAL SALINE 500 ML @ KVO IV PRN; -NORMAL SALINE IV PRN; -PALONOSETRON 0.25 MG/5 ML VIAL IV PRN; +PEGFILGRASTIM-CBQV 6 MG/0.6 ML SYRINGE SUBCUT PRN
[2020-08-15 12:09] VITALS: BP 118/67
== END 2020-08-15 12:23 | disposition home or self-care (01) ==
LOC: II 12:02 → 5TH 12:05 → II 12:23
PROVIDERS: ATTEND Internal Medicine Hematology & Oncology
DX: Z76.89 Persons encountering health services in other specified circumstances (principal); C50.411 Malignant neoplasm of upper-outer quadrant of right female breast
CPT/HCPCS: 96372; Q5111

== ENCOUNTER → 2020-09-10 | Outpatient (CLI) | payer OTHER | LOC: OD 10:30 | PROVIDERS: ATTEND Radiology Radiation Oncology | DX: C50.411 Malignant neoplasm of upper-outer quadrant of right female breast (principal) | CPT/HCPCS: 36415; 84703 ==